=== PATIENT | female | born 1980 | race Caucasian/White ===

== ENCOUNTER 2016-06-16 19:16 | Emergency (ER) | payer OTHER ==
[~2016-06-16] VITALS: Ht 160 cm; Wt 100.0 kg
[~2016-06-16 19:16] MED LIST: AMOXICILLIN 8751 TAB PO; CLINDAMYCIN HC150 MG PO; LORTAB 5/500 501 TAB PO; METRONIDAZOLE500 MG PO; NO HOME MEDICATIONS; NORCO 325 MG-51 TAB PO; PEPCID 20MG TAB20 MG PO; PERCOCET 325 MG1 TA2 PO; PHENERGAN 25 TA25 MG PO; PHENERGAN W/CO120 ML PO; PREDNISONE10 MG PO; TESSALON PERLE200 MG PO; TUSS PO; ZITHROMAX 250M250 MG PO; ZITHROMAX Z PA250 MG PO
[2016-06-16 19:22] VITALS: BP 149/68; PULSE 94; TEMP 98.4
[2016-06-16] MEDS ORDERED: LATUDA20 MG PO (19:26)
[2016-06-16] MEDS ORDERED: SEROQUEL 1100 MG/TAB PO (19:27)
[2016-06-16] MEDS ORDERED: VENLAFAXINE225 MG PO (19:27)
[2016-06-16] MEDS ORDERED: ZANTAC 7575 MG PO (19:28)
[2016-06-16 20:05] LABS: AMPHETAMINE URINE NEGATIVE; BARBITURATES URINE NEGATIVE; BENZODIAZEPINES URINE NEGATIVE; BUPRENORPHINE URINE NEGATIVE; METHADONE URINE NEGATIVE; OPIATES URINE NEGATIVE; OXYCODONE URINE NEGATIVE; PHENCYCLIDINE URINE NEGATIVE; PROPOXYPHENE URINE NEGATIVE; THC CANNABINOIDS URINE NEGATIVE
== END 2016-06-16 20:37 | disposition home or self-care (01) ==
LOC: COL.ER 19:16
PROVIDERS: Nurse Practitioner
DX: R51 Headache (principal); Z03.89 Encounter for observation for other suspected diseases and conditions ruled out
CPT/HCPCS: J1885; J2550

== ENCOUNTER → 2016-06-28 | Outpatient (REF) ==
[~2016-06-28] MED LIST changes: +LATUDA20 MG PO; +PREDNISONE20 MG PO; +SEROQUEL 1100 MG/TAB PO; +VENLAFAXINE225 MG PO; +ZANTAC 7575 MG PO
== END ==
LOC: ZLAB.WCH 16:17
DX: Z01.89 Encounter for other specified special examinations (principal)

== ENCOUNTER 2016-07-07 18:47 | Emergency (ER) | payer OTHER ==
[~2016-07-07] VITALS: Ht 160 cm; Wt 109.1 kg
[~2016-07-07 18:47] MED LIST changes: -PREDNISONE20 MG PO
[2016-07-07 18:54] VITALS: BP 137/93; TEMP 97.4
[2016-07-07] MEDS ORDERED: PREDNISONE20 MG PO (19:43)
[2016-07-07 20:38] VITALS: PULSE 92
== END 2016-07-07 20:38 | disposition home or self-care (01) ==
LOC: COL.ER 18:47
DX: R51 Headache (principal); J06.9 Acute upper respiratory infection, unspecified
CPT/HCPCS: J1200; J1885; J2765; J7512

== ENCOUNTER 2016-07-10 21:55 | Emergency (ER) | payer OTHER ==
[~2016-07-10] VITALS: Ht 160 cm; Wt 109.1 kg
[~2016-07-10 21:55] MED LIST changes: +PREDNISONE20 MG PO
[2016-07-10 21:57] VITALS: BP 118/71; TEMP 98.4
[2016-07-10 22:45] LABS: INFLUENZA B NEGATIVE
[2016-07-10] MEDS ORDERED: NORCO 325 MG-51 TAB PO (22:50)
[2016-07-10] MEDS ORDERED: ZITHROMAX 250M250 MG PO (22:50)
[2016-07-10 23:06] VITALS: PULSE 114
== END 2016-07-10 23:20 | disposition home or self-care (01) ==
LOC: COL.ER 21:55
PROVIDERS: Emergency Medicine
DX: J20.9 Acute bronchitis, unspecified (principal); H10.9 Unspecified conjunctivitis

== ENCOUNTER 2016-11-23 14:25 | Emergency (ER) | payer OTHER ==
[~2016-11-23] VITALS: Ht 160 cm; Wt 121.8 kg
[2016-11-23 14:26] VITALS: TEMP 98
[2016-11-23 15:15] LABS: BASO # 0.1 (0.0-0.2); BASO % 0.4 % (0.0-2.0); EOS # 0.1 (0.0-0.7); EOS % 0.4 % (0-4.0); GRAN # 7.1 (1.4-6.5); GRAN % 62.6 % (42.2-75.2); HEMATOCRIT 38.4 % (37.0-47.0); HEMOGLOBIN 13.4 g/dl (12.5-16.0); LYMPH # 3.5 (1.2-3.4); LYMPH % 30.8 % (20.0-51.0); MEAN CELL VOLUME 89 fl (80.0-100.0); MEAN CORPUSCULAR HEMOGLOBIN 31 pg (27.0-31.0); MEAN CORPUSCULAR HGB CONC 35 g/dl (33.0-37.0); MEAN PLATELET VOLUME 10.1 fl (7.4-10.4); MONO # 0.6 (0.1-0.6); MONO % 5.5 % (1.7-9.3); PLATELET COUNT 357 K/mm3 (130-400); RED BLOOD COUNT 4.32 M/mm3 (4.10-5.30); REDCELL DISTRIBUTION WIDTH-CV 12.3 % (11.5-14.5); WHITE BLOOD COUNT 11.3 K/mm3 (4.8-10.8)
[2016-11-23 15:25] LABS: ADJUSTED CALCIUM 8.8 mg/dL (8.4-10.2); ALANINE AMINOTRANSFERASE 28 U/L (9-52); ALBUMIN 4.2 gm/dL (3.5-5.0); ALKALINE PHOSPHATASE 69 U/L (50-136); ANION GAP 13 mmol/L (7-16); BILIRUBIN,TOTAL 0.5 mg/dL (0.0-1.0); BLOOD UREA NITROGEN 10 mg/dL (7-17); CARBON DIOXIDE 18 mmol/L (22-30); CHLORIDE 108 mmol/L (98-107); CREATININE, serum 0.78 mg/dL (0.52-1.25); GLUCOSE 86 mg/dL (74-106); POTASSIUM 3.7 mmol/L (3.4-5.0); SODIUM 139 mmol/L (137-145); TOTAL PROTEIN 7.5 gm/dL (6.4-8.2)
[2016-11-23 15:50] LABS: TROPONIN-I < 0.012 ng/mL (0.000-0.034)
[2016-11-23 18:45] VITALS: BP 117/77; PULSE 78
== END 2016-11-23 18:47 | disposition home or self-care (01) ==
LOC: COL.ER 14:25
PROVIDERS: Physician Assistant
DX: R07.9 Chest pain, unspecified (principal); T19.2XXA Foreign body in vulva and vagina, initial encounter; D68.51 Activated protein C resistance; R06.02 Shortness of breath; R11.0 Nausea; F41.9 Anxiety disorder, unspecified; R10.817 Generalized abdominal tenderness
CPT/HCPCS: J1170; J2060; J2405; Q9967

== ENCOUNTER 2017-02-23 14:32 | Emergency (ER) | payer OTHER ==
[~2017-02-23] VITALS: Ht 160 cm; Wt 113.6 kg
[2017-02-23 14:34] VITALS: BP 142/96; PULSE 97; TEMP 97
[2017-02-23] MEDS ORDERED: NORCO 325 MG-51 TAB PO (15:51)
== END 2017-02-23 16:03 | disposition home or self-care (01) ==
LOC: COL.ER 14:32
DX: S60.221A Contusion of right hand, initial encounter (principal); S80.02XA Contusion of left knee, initial encounter; S80.01XA Contusion of right knee, initial encounter; V43.52XA Car driver injured in collision with other type car in traffic accident, initial encounter; Y93.I9 Activity, other involving external motion
CPT/HCPCS: J1885

== ENCOUNTER 2017-03-17 17:28 | Emergency (ER) | payer OTHER ==
[~2017-03-17] VITALS: Ht 160 cm; Wt 113.6 kg
[2017-03-17 17:30] VITALS: BP 145/92; PULSE 94; TEMP 98.4
== END 2017-03-17 18:56 | disposition home or self-care (01) ==
LOC: COL.ER 17:28
DX: S66.811A Strain of other specified muscles, fascia and tendons at wrist and hand level, right hand, initial encounter (principal); V89.2XXA Person injured in unspecified motor-vehicle accident, traffic, initial encounter

== ENCOUNTER 2017-04-03 09:44 | Emergency (ER) | payer SELFPAY ==
[~2017-04-03] VITALS: Ht 160 cm; Wt 113.6 kg
[2017-04-03 09:48] VITALS: BP 123/61; TEMP 98.3
[2017-04-03 10:37] LABS: STREP SCREEN NEGATIVE
[2017-04-03 10:48] LABS: INFLUENZA A NEGATIVE; INFLUENZA B NEGATIVE
[2017-04-03 11:44] VITALS: PULSE 99
== END 2017-04-03 11:45 | disposition home or self-care (01) ==
LOC: COL.ER 09:44
PROVIDERS: Physician Assistant Medical
DX: B34.9 Viral infection, unspecified (principal); Z98.51 Tubal ligation status

== ENCOUNTER 2017-04-09 21:02 | Emergency (ER) | payer SELFPAY ==
[~2017-04-09] VITALS: Ht 160 cm; Wt 113.6 kg
[2017-04-09 21:07] VITALS: BP 134/89; TEMP 98.6
[2017-04-09] MEDS ORDERED: ZITHROMAX 250M250 MG PO (22:46)
[2017-04-09 23:11] VITALS: PULSE 91
== END 2017-04-09 23:11 | disposition home or self-care (01) ==
LOC: COL.ER 21:02
DX: J40 Bronchitis, not specified as acute or chronic (principal); J98.01 Acute bronchospasm; F17.210 Nicotine dependence, cigarettes, uncomplicated

== ENCOUNTER 2017-04-25 20:21 | Emergency (ER) | payer SELFPAY ==
[~2017-04-25] VITALS: Ht 160 cm; Wt 113.6 kg
[2017-04-25 20:29] VITALS: TEMP 98.7
[2017-04-25] MEDS ORDERED: ATARAX 25MG25 MG/TAB PO (21:36)
[2017-04-25 22:26] VITALS: BP 143/100; PULSE 80
== END 2017-04-25 22:28 | disposition home or self-care (01) ==
LOC: COL.ER 20:21
DX: F41.9 Anxiety disorder, unspecified (principal); I10 Essential (primary) hypertension; F43.10 Post-traumatic stress disorder, unspecified; F32.9 Major depressive disorder, single episode, unspecified

== ENCOUNTER 2017-09-13 07:15 | Emergency (ER) | payer SELFPAY ==
[~2017-09-13] VITALS: Ht 160 cm; Wt 128.4 kg
[~2017-09-13 07:15] MED LIST changes: +ATARAX 25MG25 MG/TAB PO
[2017-09-13 07:19] VITALS: BP 141/89; TEMP 97.9
[2017-09-13] MEDS ORDERED: FLEXERIL 1010 MG/TAB PO (08:09)
[2017-09-13 08:26] VITALS: PULSE 88
== END 2017-09-13 08:27 | disposition home or self-care (01) ==
LOC: COL.ER 07:15
DX: S29.012A Strain of muscle and tendon of back wall of thorax, initial encounter (principal); Z98.51 Tubal ligation status; W01.0XXA Fall on same level from slipping, tripping and stumbling without subsequent striking against object, initial encounter; Y92.009 Unspecified place in unspecified non-institutional (private) residence as the place of occurrence of the external cause

== ENCOUNTER 2018-08-02 17:33 | Emergency (ER) | payer SELFPAY ==
[~2018-08-02] VITALS: Ht 160 cm; Wt 90.9 kg
[~2018-08-02 17:33] MED LIST changes: +FLEXERIL 1010 MG/TAB PO
[2018-08-02 17:54] LABS: BASO # 0.1 (0.0-0.2); BASO % 0.4 % (0.0-2.0); EOS # 0.1 (0.0-0.7); EOS % 0.7 % (0-4.0); GRAN # 6.3 (1.4-6.5); GRAN % 52.5 % (42.2-75.2); HEMATOCRIT 40.4 % (37.0-47.0); HEMOGLOBIN 13.8 g/dl (12.5-16.0); LYMPH # 4.8 (1.2-3.4); LYMPH % 40.4 % (20.0-51.0); MEAN CELL VOLUME 90 fl (80.0-100.0); MEAN CORPUSCULAR HEMOGLOBIN 31 pg (27.0-31.0); MEAN CORPUSCULAR HGB CONC 34 g/dl (33.0-37.0); MEAN PLATELET VOLUME 9.6 fl (7.4-10.4); MONO # 0.6 (0.1-0.6); MONO % 4.9 % (1.7-9.3); PLATELET COUNT 396 K/mm3 (130-400); RED BLOOD COUNT 4.49 M/mm3 (4.10-5.30); REDCELL DISTRIBUTION WIDTH-CV 12.9 % (11.5-14.5)
[2018-08-02 18:03] LABS: ALBUMIN 3.7 gm/dL (3.5-5.0); BILIRUBIN,TOTAL 0.3 mg/dL (0.0-1.0); CALCIUM 9.3 mg/dL (8.4-10.2); CREATININE, serum 0.89 mg/dL (0.52-1.25); POTASSIUM 3.5 mmol/L (3.4-5.0)
[2018-08-02 18:32] VITALS: TEMP 97.4
[2018-08-02 21:10] VITALS: BP 121/79; PULSE 94
== END 2018-08-02 21:10 | disposition short-term general hospital (02) ==
LOC: COL.ER 17:33
PROVIDERS: Emergency Medicine
DX: S32.592A Other specified fracture of left pubis, initial encounter for closed fracture (principal); S32.059A Unspecified fracture of fifth lumbar vertebra, initial encounter for closed fracture; S01.512A Laceration without foreign body of oral cavity, initial encounter; V43.52XA Car driver injured in collision with other type car in traffic accident, initial encounter
CPT/HCPCS: J1170; J2405; J3010; J7030; Q9967

== ENCOUNTER 2018-08-12 22:50 | Emergency (ER) | payer SELFPAY ==
[~2018-08-12] VITALS: Ht 160 cm; Wt 90.9 kg
[2018-08-12 22:52] VITALS: TEMP 97.7
[2018-08-13] MEDS ORDERED: NORCO 325 MG-51 TAB PO (00:22)
[2018-08-13 01:11] VITALS: BP 131/84; PULSE 79
== END 2018-08-13 01:10 | disposition home or self-care (01) ==
LOC: COL.ER 22:50
DX: S42.002A Fracture of unspecified part of left clavicle, initial encounter for closed fracture (principal); S32.059A Unspecified fracture of fifth lumbar vertebra, initial encounter for closed fracture; V89.2XXA Person injured in unspecified motor-vehicle accident, traffic, initial encounter
CPT/HCPCS: J3010

== ENCOUNTER 2018-08-20 17:47 | Emergency (ER) | payer SELFPAY ==
[~2018-08-20] VITALS: Ht 160 cm; Wt 90.9 kg
[2018-08-20 18:04] VITALS: TEMP 99.1
[2018-08-20] MEDS ORDERED: FLEXERIL 1010 MG/TAB PO (20:30)
[2018-08-20] MEDS ORDERED: PERCOCET 325 MG1 TA2 PO (20:30)
[2018-08-20 20:59] VITALS: BP 134/89; PULSE 16
== END 2018-08-20 20:59 | disposition home or self-care (01) ==
LOC: COL.ER 17:47
DX: S01.81XA Laceration without foreign body of other part of head, initial encounter (principal); W19.XXXA Unspecified fall, initial encounter; W22.8XXA Striking against or struck by other objects, initial encounter; Y92.009 Unspecified place in unspecified non-institutional (private) residence as the place of occurrence of the external cause